=== PATIENT | female | born 1990 | race Asian ===

== ENCOUNTER → 2016-06-10 | Outpatient (CLI) | payer BC ==
[~2016-06-10] VITALS: Ht 160 cm; Wt 65.0 kg
[~2016-06-10] MED LIST: NO DAILY MEDS; ONDANSETRON 4mg/2ml INJECTION IV PRN
[2016-06-10] MEDS: DimenhyDRINATE 50 MG in LR 1,000 ML IV SCH (14:36)
[2016-06-10 14:38] VITALS: BP 100/66; PULSE 71; RESP 16; TEMP 97.5; O2SAT 100
[2016-06-10 14:39] VITALS: Ht 160 cm; Wt 65.0 kg
[2016-06-10] MEDS: D5LR 1,000 ML IV SCH (15:45)
== END ==
LOC: INF.THER 13:55
PROVIDERS: ATTEND Obstetrics & Gynecology
DX: O21.1 Hyperemesis gravidarum with metabolic disturbance (principal)
CPT/HCPCS: 96361; 96365; J1240; J7120; J7121

== ENCOUNTER 2016-11-21 11:11 | Inpatient (IN) ==
--- OUTSIDE RECORDS SUMMARY | 2016-11-21 11:19 | External Medical Summary | Continuity of Care Document ---
:1990 Author Organization [facility] Address [address] [place], [place] [address] Phone Support Name Relationship Address Phone Catarino Craven spouse [address] [facility] [facility] [address] [phone] [place] [address] Allergies, Adverse Reactions, Alerts Substance Reaction Severity Status No Known Drug Allergies Unknown Active Medications Medication Instructions Dosage Effective Dates Status Comments (start - stop) Prena1 Chew 1.4 mg chew 1 tablet by Not Available - Active chew oral route every tablet,immediate - day delayed release Problems Condition Effective Dates (start - stop) Clinical Status Matern care for oth or susp poor fetl - gr, third tri, unsp Encntr for suprvsn of normal first - preg, third trimester 30 weeks gestation of - Encntr for suprvsn of normal first - preg, second trimester 24 weeks gestation of - Matern care for oth or susp poor fetl - gr, third tri, unsp Encntr for suprvsn of normal first - preg, third trimester 32 weeks gestation of - Generalized abdominal pain Nausea with vomiting, unspecified Encntr screen for infections w sexl - mode of transmiss Encounter for screening for oth - infec/parastc diseases Encntr for suprvsn of normal first - preg, second trimester Encounter for screening of - mother 15 weeks gestation of - Encntr for suprvsn of normal first - preg, second trimester 19 weeks gestation of - Encntr for suprvsn of normal first - preg, second trimester 27 weeks gestation of - Encntr for suprvsn of normal first - preg, second trimester 19 weeks gestation of - Procedures Procedure Date OB Visit No Charge Immuniz admnin, 1 vac, sngl/combo 19 Yrs + TDAP VACCINE >7 IM Results Test Name Date and Time Measure Units Reference Range Abnormal Flag Comments Unknown Advance Directives Directive Yes / No Effective Date File Name Unknown Encounters Encounter Practice Location Reason(s) Diagnoses Date Provider Care Team Description For Visit Members Elver Guzman Matern care for Oct- Jena Referring In Womens oth or susp poor 4-201 [place]. Provider: Rony SILVER, michaell grth, third 7 700 [place] PO [address] tri, unspEncntr Medical Jena L, 1522, for suprvsn of [address], normal first Clyde Santarcuz preg, third 120, [place] [id number], [email or web address] weeks Guzman, [facility] 120, [place] gestation of Thomas [place], tel:[phone] [place], , [place]. [id number]. tel: tel:[phone] Elver Guzman Matern care for Sep- Jena Referring In Womens oth or susp poor 1-201 [place]. Provider: Rony SILVER fetl grth, third 7 700 [place] PO Box tri, unspEncntr Radha Bella L, 1522, for suprvsn of [address], normal first Clyde Santacruz preg, third 120, [place] [id number], [email or web address] weeks Guzman, Clyde 120, [place] gestation of Thomas [place], tel:[phone] [place], , [place]. [id number]. tel: tel:[phone] Elver Guzman Encntr for Aug- Jena Referring In Womens suprvsn of normal 0-201 [place]. Provider: Rony SILVER, first preg, 7 700 [place] PO Box second Medical Jena L, 1522, [email or web address] weeks Center [address] [place], gestation of Clyde Santacruz, 120, Center [id number], Thomas [place] 120, [place] Thomas [place], tel:[phone] [place], , [place]. [id number]. tel: tel:[phone] Elver Guzman Encntr for Shahram-0 Jena Referring In Womens suprvsn of normal 9-201 [place]. Provider: Health PA, first preg, 7 700 [place] PO Box second Medical Jena L, 1522, [email or web address] weeks Center [address] [place] [address], gestation of Clyde Santacruz, 120, Center [id number], Thomas [facility] 120, [place] Thomas [place], tel:[phone] [place], , [place]. [id number]. tel: tel:[phone] Elver Guzman Encntr for May-0 Jena Referring In Womens suprvsn of normal 8-201 [place]. Provider: Health PA, first preg, 7 700 [place] PO Box second Medical Jena L, 1522, weeks Center [address] [place] [address], gestation of Clyde Santacruz, 120, Center [id number], Thomas [place] 120, [place] Thomas [place], tel:[phone] [place], , [place]. [id number]. tel: tel:[phone] Elver Guzman Encntr for May-0 Jena Referring In Womens Ultrasound suprvsn of normal 8-201 [place]. Provider: Health PA, first preg, 7 700 [place] PO Box second Medical Jena L, 1522, [email or web address] weeks Center [address] [place] [address], gestation of Clyde Santacruz, 120, Center [id number], Thomas [facility] 120, [place] Thomas [place], tel:[phone] [place], , [place]. [id number]. tel: tel:[phone] Elver Guzman Encntr screen for Apr-1 Jena Referring In Womens infections w sexl 0-201 [place]. Provider: Health ADRIANNE, mode of 7 700 [place] PO Box transmissEncounte Radha Bella L, 1522, r for screening Center [address] [place] [address], for oth , [facility] Radha [place], infec/parastc 120, Center [id number], [facility], [place] for suprvsn of Thomas [place], tel:2 normal first [phone] [place], preg, second , [place]. [id number]. trimesterEncounte tel: tel:[phone] r for [phone] screening of [email or web address] weeks gestation of Associates Thomas Miner Apr- Cecille Referring In Womens abdominal 7-201 [place]pa. Provider: Rony SILVER, Colleenusejulio with 7 700 [place] PO Box vomiting, Radha Bella L, 1522, unspecified Center [facility] Ximena, , Clyde Garcia [place], 120, [place] [id number], [place] [address], Thomas [place], tel: [phone] [facility], [place] , [place]. [id number]. tel: tel:[phone] Family History Family Member Diagnosis Age At Onset No family history of Hypertension No family history of Diabetes No family history of Epilepsy Mother Thyroid Disorder No family history of Thyroid Disorder No family history of Ovarian Cancer No family history of Stroke No family history of Osteoporosis No family history of Colon Cancer No family history of Kidney Disease No family history of Breast Cancer No family history of Cardiovascular Disease No family history of Lung Disease Immunizations Vaccine Date Status Comments Tdap completed Source: New Immunization Record Payers Payer name Insurance type Covered libertarian ID Authorization(s) [facility] [id number] [facility] [id number] Social History Type Description Quantity Date Captured Alcohol Use Details No Caffeine Use Details Unknown Tobacco Use Status Unknown Smoking Status Never smoker Vital Signs Date / Height Weight BMI Pulse Blood Temperature Respiratory Body Head BMI Time: Rate Pressure Rate Surface Circumference percentile Area 169.40 33.0 105/65 -2016 lbs 8 mm[Hg] 1:43 kg/m PM eter (2) Chief Complaint And Reason For Visit Unknown Chief Complaint And Reason For Visit Reason For Referral Reason For Referral Unknown Plan Of Care Date Type Action Status Goal Lifestyle education regarding completed diet Appointment Eze Boykin BOOKED Appointment Eze Boykin BOOKED Appointment Eze Boykin BOOKED Appointment Eze Boykin BOOKED Future Order: Lab Order Pap Smear With HPV Reflex If Ordered ASCUS ([id number]) Future Order: Radiology Order Complete OB Ultrasound > 14 Ordered Weeks ([id number]) Date Type Problem Goal Intervention Status Start Date Unknown. History Of Present Illness Encounter Date Complaint History Of Present Illness This patient has no known history of present illness Functional Status Encounter Date Functional Assessment Cognitive Assessment Unknown Medications Administered Medication Instructions Dosage Effective Dates (start - stop) Status Comments Drug Treatment Unknown Instructions Date Instruction Additional Information HIV and other routine tests risk factors identified by history anticipated course of care nutrition and weight gain counseling, special diet toxoplasmosis precautions (cats / raw meat) sexual activity exercise indications for ultrasound influenza vaccine environmental / work hazards travel tobacco (ask, advise, assess, assist and arrange) alcohol illicit / recreational drugs use of any medications (including supplements, vitamins, herbs, OTC drugs) smoking counseling domestic violence seat belt use childbirth classes / hospital facilities hospital registration genetic testing new ob handbook Giving encouragement to exercise Related to Body mass index 27.0-27.9 Lifestyle education regarding diet Related to Body mass index 27.0-27.9
--- OUTSIDE RECORDS SUMMARY | 2016-11-21 11:19 | External Medical Summary | Continuity of Care Document ---
:1990 Author Organization [facility] Address [address] [place], [place] [address] Phone Support Name Relationship Address Phone Catarino Craven spouse [address] [facility] [address] [phone] [place] [address] Allergies, Adverse Reactions, Alerts Substance Reaction Severity Status No Known Drug Allergies Unknown Active Medications Medication Instructions Dosage Effective Dates Status Comments (start - stop) Prena1 Chew 1.4 mg chew 1 tablet by Not Available - Active chew oral route every tablet,immediate - day delayed release Problems Condition Effective Dates (start - stop) Clinical Status Encntr for suprvsn of normal first - preg, third trimester 34 weeks gestation of - Encntr for suprvsn of normal first - preg, second trimester 24 weeks gestation of - Matern care for oth or susp poor fetl - grth, third tri, unsp Encntr for suprvsn of normal first - preg, third trimester 32 weeks gestation of - Matern care for oth or susp poor fetl - grth, third tri, unsp 30 weeks gestation of - Encntr for suprvsn of normal first - preg, third trimester Matern care for oth or susp poor fetl - grth, third tri, unsp 34 weeks gestation of - Generalized abdominal pain Nausea with vomiting, unspecified Encntr for suprvsn of normal first - preg, second trimester Encntr screen for infections w sexl - mode of transmiss Encounter for screening for oth - infec/parastc diseases Encounter for screening of - mother 15 [...] of normal first - preg, third trimester Encounter for screening of - mother 36 weeks gestation of - Procedures Procedure Date OB Visit No Charge Results Test Name Date and Time Measure Units Reference Range Abnormal Flag Comments Unknown Advance Directives Directive Yes / No Effective Date File Name Unknown Encounters Encounter Practice Location Reason(s) Diagnoses Date Provider Care Team Description For Visit Members Elver Guzman Encntr for Lopez Referring In Womens suprvsn of normal 1-201 [place]. 700 Provider: Health ADRIANNE, first preg, third 7 Medical Kerry PO Box trimesterEncounte [facility] L, 1522, r for Clyde Santacruz, screening of 120, Medical [place], weeks [facility] [id number], gestation of [place], [facility] 120, [place] Thomas, tel: , [place]. [place], tel: [phone]. [id number] tel:[phone] Elver Guzman Encntr for Jena Referring In Womens suprvsn of normal 7-201 [place]. Provider: Health ADRIANNE, first preg, third 7 700 [place] PO Box [email or web address] weeks Medical Jena Leal, 1522, gestation of Am[place] Arun Bueno, Clyde Santacruz Medical [place], 120, [place] [id number], [facility] 120, [place] Thomas [place], tel: [phone] [place], , [place]. [id number]. tel: tel: [phone] Elver Guzman Matern care for Aug-1 Jena Referring In Womens Ultrasound oth or susp poor 7-201 Kerry. Provider: Rony SILVER, fetl grth, third 7 700 [place] PO Box tri, [email or web address] weeks Medical Jena L, 1522, gestation of Center [address] [place] [address], Clyde Santacruz, 120, Center [id number], Thomas [facility] 120, [place] Thomas [place], tel:[phone] [place], , [place]. [id number]. tel: tel:[phone] Elver Guzman Matern care for Aug-0 Jena Referring In Womens oth or susp poor 4-201 Kerry. Provider: Rony SILVER, fetl grth, third 7 700 [place] PO Box tri, unspEncntr Medical Jena L, 1522, for suprvsn of [address], normal first Clyde Santacruz, preg, third 120, [place] [id number], [email or web address] [facility], [place] gestation of Thomas [place], tel:+ [phone] [place], , [place]. [id number]. tel: tel:[phone] Elver Guzman Matern care for Chris-2 Jena Referring In Womens oth or susp poor 1-201 Kerry. Provider: Rony SILVER, fetl grth, third 7 700 [place] PO Box tri, [email or web address] weeks Medical Jena L, 1522, gestation of [address], pregnancyEncntr Clyde Santacruz, for suprvsn of 120, [place] [id number], normal first Guzman, [facility] 120, [place] preg, third Thomas GORDON, tel: trimester [phone] [place], , [place]. [id number]. tel: tel:[phone] Elver Guzman Encntr for Shahram-3 Jena Referring In Womens suprvsn of normal 0-201 Kerry. Provider: Rony SILVER, first preg, 7 700 [place] PO Box second Medical Jena L, 1522, [email or web address] weeks [address], gestation of Clyde Santacruz, 120, Center [id number], Thomas, [facility] 120, [place] Thomas [place], tel:[phone] [place], , [place]. [id number]. tel: tel:[phone] Associates [place] Encntr for Shahram-0 Jena Referring In Womens suprvsn of normal 9-201 Kerry. Provider: Rony SILVER, first preg, 7 700 [place] PO Box second Medical Jena L, 1522, [email or web address] weeks Center 700 [place], gestation of Clyde Santacruz, 120, Center [id number], Thomas, [facility] 120, [place] Thomas [place], tel:[phone] [place], , [place]. [id number]. tel: tel:[phone] Associates [place] Encntr for May-0 Jena Referring In Womens suprvsn of normal 8-201 Ekrry. Provider: Rony SILVER, first preg, 7 700 [place] PO Box second Medical Jena L, 1522, [email or web address] weeks Center 700 [place], gestation of Clyde Santacruz, 120, Center [id number], Thomas, [facility] 120, [place] Thomas GORDON, tel:[phone] [place], , [place]. [id number]. tel: tel:[phone] Associates [place] Encntr for May-0 Jena Referring In Womens Ultrasound suprvsn of normal 8-201 [place]. Provider: Rony SILVER, first preg, 7 700 [place] PO Box second Medical Jena L, 1522, [email or web address] weeks Center 700 [place], gestation of Clyde Santacruz, 120, Center [id number], Thomas, [facility] 120, US Thomas GORDON, tel:[phone] [place], , [place]. [id number]. tel: tel:[phone] Associates [place] Encntr for Apr-1 Jena Referring In Womens suprvsn of normal 0-201 [place]. Provider: Rony SILVER, first preg, 7 700 [place] PO Box second Medical Jena L, 1522, trimesterEncntr Center 700 [place], screen for Dr, [facility], infections w sexl 120, Center [id number], mode of [facility] 120, transmissEncounte Thomas GORD[place], tel: r for screening [phone] [place], for oth , [place]. [id number]. infec/parastc tel: tel:+[phone] [facility] [phone] for screening of [id number] weeks gestation of Associates Thomas Miner Cecille Referring In Womens abdominal 7-201 [place]pa. Provider: Val Oseguera with 7 700 [place] PO Box vomiting, Radha Bella L, 1522, unspecified Center 700 [place], , [facility], 120, Center [id number], [place] [address], Thomas [place]ORD[place], tel:[phone] [facility] , [place]. [id number]. tel: tel: [phone] Family History Family Member Diagnosis Age At [...] Record Payers Payer name Insurance type Covered constitution party ID Authorization(s) [facility] [id number] [facility] [id number] Social History Type Description Quantity Date Captured Alcohol Use Details No Caffeine Use Details Unknown Tobacco Use Status Unknown Smoking Status Never smoker Vital Signs Date / Height Weight BMI Pulse Blood Temperature Respiratory Body Head BMI Time: Rate Pressure Rate Surface Circumference percentile Area 176.30 34.4 lbs 3 mm[Hg] 3:48 kg/m PM eter (2) Chief Complaint And Reason For Visit Unknown Chief Complaint And Reason For Visit Reason For Referral Reason For Referral Unknown Plan Of Care Date Type Action Status Goal Lifestyle education regarding completed diet Appointment Lucretia Davinbrenda BOOKED Future Order: Radiology Order Ultrasound OB Follow-up ([id number]) Ordered Future Order: Lab Order Pap Smear With HPV Reflex If Ordered ASCUS ([id number]) Future Order: Radiology Order Complete OB Ultrasound > 14 Ordered Weeks ([id number]) Date Type Problem Goal Intervention Status Start [...]
--- OUTSIDE RECORDS SUMMARY | 2016-11-21 11:20 | External Medical Summary | Continuity of Care Document ---
:1990 Author Organization [facility] Address [address] [place], [place] [address] Phone Support Name Relationship Address Phone Catarino Craven spouse [address] [phone] [place] [address] Allergies, Adverse Reactions, Alerts Substance Reaction Severity [...] third trimester 32 weeks gestation of - Encntr for suprvsn of normal first - preg, second trimester 24 weeks gestation of - Matern care for oth or susp poor fetl - gr, third tri, unsp Encntr for suprvsn of normal first - preg, third trimester 30 weeks gestation of - Matern care for oth or susp poor fetl - gr, third tri, unsp 34 weeks gestation of [...] third trimester 34 weeks gestation of - Procedures Procedure Date OB Visit No Charge Results Test Name Date and Time Measure Units Reference Range Abnormal Flag Comments Unknown Advance Directives Directive Yes / No Effective Date File Name Unknown Encounters Encounter Practice Location Reason(s) Diagnoses Date Provider Care Team Description For Visit Members [facility] [place] Encntr for Jena Referring In Womens suprvsn of normal 7-201 [place]. Provider: Rony SILVER, first preg, third 7 700 [place] PO Box [email or web address] weeks Medical Jena L, 1522, gestation of Center [address] [place] [address], Dr [facility], 120, [place] [id number], [facility], [place] Thomas [place]ORDON, tel:[phone] [place], [address] , [place]. [id number]. tel: [phone] Elver Guzman Matern care for Jena Referring In Womens Ultrasound oth or susp poor 7-201 [place]. Provider: anjum Oseguera grranda, third 7 700 [place] PO Box tri, [email or web address] weeks Medical Jena L, 1522, gestation of Center [address] [place] [address], Dr [facility], 120, [place] [id number], [facility] 120, [place] Thomas GORD[place], tel:[phone] [facility]ount [facility]90 , [place]. [id number]. tel: tel:[phone] Elver Guzman Matern care for Oct- Jena Referring In Womens oth or susp poor 4-201 Kerry. Provider: Rony SILVER fetl grth, third 7 700 [place] PO Box tri, unspEncntr Medical Jena L, 1522, for suprvsn of [address], normal first Clyde Santacruz, preg, third 120, Center , [email or web address] weeks [facility] 120, [place] gestation of Thomas GORDON, tel:+ [phone] [place], , [place]. [id number]. tel: tel:[phone] Elver Guzman Matern care for Chris-2 Jena Referring In Womens oth or susp poor 1-201 [place]. Provider: Rony SILVER, fetl grth, third 7 700 [place] PO Box tri, unspEncntr Medical Jena L, 1522, for suprvsn of Center [address] [place] [address], normal first Clyde Santacruz, preg, third 120, Center [id number], [email or web address] weeks [facility] 120, [place] gestation of Thomas [place], tel:+ [phone] [place], , [place]. [id number]. tel: tel:[phone] Elver Guzman Encntr for Shahram-3 Jena Referring In Womens suprvsn of normal 0-201 [place]. Provider: Rony SILVER, first preg, 7 700 [place] PO Box second Medical Jena L, 1522, [email or web address] weeks [place] [address] [place], gestation of Clyde Santacruz, 120, [place] [id number], [facility] 120, [place] Thomas GORDON, tel:[phone] [place], , [place]. [id number]. tel: tel:[phone] Elver Guzman Encntr for Shahram-0 Jena Referring In Womens suprvsn of normal 9-201 [place]. Provider: Rony SILVER, first preg, 7 700 [place] PO Box second Medical Jena L, 1522, [email or web address], gestation of Clyde Santacruz, 120, Center [id number], [facility] 120, [place] Thomas GORD[place], tel:[phone] [place], , [place]. [id number]. tel: tel:[phone] Elver Guzman Encntr for May-0 Jena Referring In Womens suprvsn of normal 8-201 [place]. Provider: Rony SILVER, first preg, 7 700 [place] PO Box second Medical Jena L, 1522, [email or web address] weeks Center [address] [place] [address], gestation of Clyde Santacruz [place], 120, Center , Thomas [facility] 120, [place] Thomas GORDON, tel:[phone] [place], , [place]. [id number]. tel: tel:[phone] Associates [place] Encntr for May-0 Jena Referring In Womens Ultrasound suprvsn of normal 8-201 [place]. Provider: Rony SILVER, first preg, 7 700 [place] PO Box second Medical Jena L, 1522, weeks Center [address] [place] [address], gestation of Clyde Santacruz [place], 120, [place] [id number], Thomas [facility] 120, [place] Thomas GORDON, tel:[phone] [place], , [place]. [id number]. tel: tel:+[phone] Associates [place] Encluker screen for Apr-1 Jena Referring In Womens infections w sexl 0-201 [place]. Provider: Rony SILVER, mode of 7 700 [place] PO Box transmissEncounte Medical Jena L, 1522, r for screening [address], for oth Dr [facility] Radha GORD[place], infec/parastc 120, [place] [id number], diseasesEncntr [facility] 120, [place] for suprvsn of Thomas GORDON, tel:+[phone] normal first [id number] [place], preg, second , [place]. [id number]. trimesterEncounte tel: tel:+[phone] r for [phone] screening of [email or web address] weeks gestation of Associates Thomas Generalized Apr-0 Oden Referring In Womens abdominal 7-201 [place]. Provider: Val Oseguera with 7 700 [place] PO Box frank, Medical Jena L, 1522, unspecified Center [address] [place], [place] [address]Dr, [facility] [id number], [place] [address], Thomas GORDON, tel:[phone] [place], [address] , . [id number]. tel: tel: [phone] Family History Family Member Diagnosis Age At [...] Record Payers Payer name Insurance type Covered republican ID Authorization(s) [facility] [id number] [facility] [id number] Social History Type Description Quantity Date Captured Alcohol Use Details No Caffeine Use Details Unknown Tobacco Use Status Unknown Smoking Status Never smoker Vital Signs Date / Height Weight BMI Pulse Blood Temperature Respiratory Body Head BMI Time: Rate Pressure Rate Surface Circumference percentile Area 0 8 1:36 kg/m PM eter (2) 172.00 33.5 105/66 lbs 9 mm[Hg] 1:38 kg/m PM eter (2) Chief Complaint And Reason For Visit Unknown Chief Complaint And Reason For Visit Reason For Referral Reason For Referral Unknown Plan Of Care Date Type Action Status Goal Lifestyle education regarding completed diet Appointment Eze Boykin BOOKED Future Order: Radiology Order Ultrasound OB Follow-up ([id number]) Ordered Future Order: Lab Order Pap Smear With HPV Reflex If Ordered ASCUS ([id number]) Future Order: Radiology Order Complete OB Ultrasound > 14 Ordered Weeks ([id number]) Date Type Problem Goal Intervention Status Start [...]
--- OUTSIDE RECORDS SUMMARY | 2016-11-21 11:20 | External Medical Summary | Continuity of Care Document ---
:1990 Author Organization [facility] Address [address] [place], [place] [id number] Phone Support Name Relationship Address Phone Catarino Craven spouse [address] [phone] [place] [address] Allergies, Adverse Reactions, Alerts Substance Reaction Severity [...] second trimester 27 weeks gestation of - 24 weeks gestation of - Encntr for suprvsn of normal first - preg, second trimester Generalized abdominal pain Nausea with vomiting, unspecified Encntr screen for infections w sexl - mode of transmiss Encounter for screening for oth - infec/parastc diseases Encntr for suprvsn of normal first - preg, second trimester Encounter for screening of - mother 15 weeks gestation of - Encntr for suprvsn of normal first - preg, second trimester 19 weeks gestation of - 19 weeks gestation of - Encntr for suprvsn of normal first - preg, second trimester Procedures Procedure Date OB Visit No Charge Hemoglobin count, colorimetric Hematocrit blood count Glucose test Venpnctr fngr/heel/ear stick routne Results Test Name Date and Time Measure Units Reference Range Abnormal Flag Comments Panel Description: Glucose [Mass/volume] in Serum or Plasma --1 hour post 50 g glucose PO GLUCOSE, GESTATIONAL 79 mg/dL <140 N Test performed at [facility] SCREEN (50G)-140 14:18:00 DIAGNOSTICS [id number] [place] [address]Yypbawud: MATT EUBANKS DO,MPH Panel Description: HEMOGLOBIN + HEMATOCRIT HEMOGLOBIN 14:18:00 11.3 g/dL 11.7-15.5 L HEMATOCRIT 14:18:00 33.6 % 35.0-45.0 L REPORT COMMENT:FASTING :NOTest performed at [facility] [id number] [place] [address]Gddqjrkj: MATT EUBANKS DO,MPH Advance Directives Directive Yes / No Effective Date File Name Unknown Encounters Encounter Practice Location Reason(s) Diagnoses Date Provider Care Team Description For Visit Members Elvre Guzman Encaliyah for Jena Referring In Womens suprvsn of normal 0-201 [place]. Provider: Health ADRIANNE, first preg, 7 700 [place] PO Box second Medical Jena L, 1522, [id number] weeks Center [address] [place], gestation of Clyde Santacruz, 120, Center [id number], [facility], Thomas [place], tel:[phone] [facility] [id number] , . [id number]. tel: tel:[phone] Elver Guzman 24 weeks Aug-0 Jena Referring In Womens gestation of 9-201 [place]. Provider: Health ADRIANNE, pregnancyEncntr 7 700 [place] PO Box for suprvsn of Medical Jena L, 1522, normal first Center [address] [place], preg, second Clyde Santacruz, trimester 120, Center [id number], [facility] 120, Thomas [place], tel:[phone] [facility] , . [id number]. tel: tel:[phone] Elver Guzman 19 weeks May-0 Jena Referring In Womens gestation of 8-201 [place]. Provider: Health ADRIANNE, pregnancyEncntr 7 700 [place] PO Box for suprvsn of Medical Jena L, 1522, normal first Center [address] [place], preg, second Clyde Santacruz, trimester 120, Center [id number], Thomas [facility] 120, [place] Thomas [place], tel:[phone] [place], , [place]. [id number]. tel: tel:[phone] Elver Valdovinosntr for May-0 Jena Referring In Womens Ultrasound suprvsn of normal 8-201 [place]. Provider: Rony SILVER, first preg, 7 700 [place] PO Box second Medical Jena L, 1522, [id number] weeks Center [address] [place] [address], gestation of , Clyde [place], 120, Center [id number], Thomas [facility] 120, [place] Thomas [place], tel:[phone] [place], , [place]. [id number]. tel: tel:[phone] [facility] screen for Apr-1 Jena Referring In Womens infections w sexl 0-201 [place]. Provider: Rony SILVER, mode of 7 700 [place] PO Box transmissEncounte Medical Jena L, 1522, r for screening Center [address] [place] [address], for oth [facility] Radha [place], infec/parastc 120, Center [id number], diseasesEncntr [facility] 120, [place] for suprvsn of [place], tel:[phone] normal first [id number] [place], preg, second , [place]. [id number]. trimesterEncounte tel: tel:[phone] r for [phone] screening of [id number] weeks gestation of Associates Thomas Generalized Apr-0 Oden Referring In Womens abdominal 7-201 [place]. Provider: Rony SILVER painJazmyn with 7 700 [place] PO Box vomiting, Medical Jena L, 1522, unspecified Center [facility] [place], Dr [facility], 120, Center [id number], Thomas [place] [address], Thomas [place], tel:[phone] Dee [place]90 , [place]. [id number]. tel: tel:[phone] Family History Family Member Diagnosis Age At [...] Lung Disease Immunizations Vaccine Date Status Comments Unknown Payers Payer name Insurance type Covered green party ID Authorization(s) [facility] [id number] Social History Type Description Quantity Date Captured Alcohol Use Details No Caffeine Use Details Unknown Tobacco Use Status Unknown Smoking Status Never smoker Vital Signs Date / Height Weight BMI Pulse Blood Temperature Respiratory Body Head BMI Time: Rate Pressure Rate Surface Circumference percentile Area 163.40 31.9 103/68 lbs 1 mm[Hg] 1:25 kg/m PM eter (2) 163.40 31.9 lbs 1 1:24 kg/m PM eter (2) Chief Complaint And [...] Complete OB Ultrasound > 14 Ordered Weeks (78633) Date Type Problem Goal Intervention Status Start [...]
--- OUTSIDE RECORDS SUMMARY | 2016-11-21 11:20 | External Medical Summary | Continuity of Care Document ---
:1990 Author Organization [facility] Address [address] [place], [place] [id number] Phone Support Name Relationship Address Phone Catarino Craven spouse [address] [phone] [place] [address] Allergies, Adverse Reactions, Alerts Substance Reaction Severity [...] tri, unsp 34 weeks gestation of - Encntr for [...] of normal first - preg, third trimester Generalized abdominal pain Nausea with vomiting, [...] weeks gestation of - Procedures Procedure Date Ultrasnd preg uterus, flwup/repeat Results Test Name Date and Time Measure Units Reference Range Abnormal Flag Comments Unknown Advance Directives Directive Yes / No Effective Date File Name Unknown Encounters Encounter Practice Location Reason(s) Diagnoses Date Provider Care Team Description For Visit Members Elver Guzman Encntr for Lopze Referring In Womens suprvsn of normal 1-201 [place]. 700 Provider: Rony SILVER, first preg, third 7 Medical [place] PO Box trimesterEncounte [place] Jena Leal, 1522, r for Dr [address], screening of 120, Medical [place], weeks [facility] [id number], gestation of [facility] 120, [id number] Thomas, tel: , [place]. [place], tel: [phone]. [id number] tel:[phone] Elver Guzman Encntr for Jena Referring In Womens suprvsn of normal 7-201 [place]. Provider: Rony SILVER, first preg, third 7 700 [place] PO Box weeks Medical Jena Leal, 1522, gestation of [place] [address] [place], [address] [facility], 120[facility] [id number], [facility] 120, [place] Thomas [place], tel: [phone] [place], , . [id number]. tel: tel: [phone] Elver Guzman Matern care for Aug-1 Jena Referring In Womens Ultrasound oth or susp poor 7-201 [place]. Provider: Rony SILVER, fetl grth, third 7 700 [place] PO Box tri, [id number] weeks Medical Jena L, 1522, gestation of [address], Clyde Santacruz, 120, Center [id number], Thomas [facility] 120, [place] Thomas [place], tel:[phone] [place], , [place]. [id number]. tel: tel:[phone] Elver Guzman Matern care for Aug-0 Jena Referring In Womens oth or susp poor 4-201 [place]. Provider: Rony SILVER, fetl grth, third 7 700 [place] PO Box tri, unspEncntr Medical Jena L, 1522, for suprvsn of [address], normal first Clyde Santacruz, preg, third 120, [place] [id number], [email or web address] weeks Thomas [facility] 120, [place] gestation of Thomas [place], tel:+ [phone] [place], , [place]. [id number]. tel: tel:[phone] Elver Guzman Matern care for Chris-2 Jena Referring In Womens oth or susp poor 1-201 [place]. Provider: Rony SILVER, fetl grth, third 7 700 [place] PO Box tri, [email or web address] weeks Medical Jena L, 1522, gestation of [address], pregnancyEncntr Clyde Santacruz, for suprvsn of 120, [place] [id number], normal first Thomas Clyde 120, [place] preg, third Thomas [place], tel: trimester [phone] [place], , [place]. [id number]. tel: tel:[phone] Elver Guzman Encntr for Shahram-3 Jena Referring In Womens suprvsn of normal 0-201 [place]. Provider: Rony SILVER, first preg, 7 700 [place] PO Box second Medical Jena L, 1522, [id number], gestation of Clyde Santacruz, 120, Center [id number], Thomas, [facility] 120, [place] Thomas [place], tel:[phone] [place], , [place]. [id number]. tel: tel:[phone] Associates Thomas Encntr for Shahram-0 Jena Referring In Womens suprvsn of normal 9-201 [place]. Provider: Rony SILVER, first preg, 7 700 [place] PO Box second Medical Jena L, 1522, [email or web address] weeks Center [address] [place] [address], gestation of Clyde Santacruz, 120, Center [id number], Thomas, [facility] 120, [place] Thomas [place], tel:[phone] [place], , [place]. [id number]. tel: tel:[phone] Elver Guzman Encntr for May-0 Jena Referring In Womens suprvsn of normal 8-201 [place]. Provider: Rony SILVER, first preg, 7 700 [place] PO Box second Medical Jena L, 1522, weeks Center [address] [place] [address], gestation of Clyde Santacruz, 120, Center [id number], Thomas [facility] 120, [place] Thomas [place], tel:[phone] [place], , [place]. [id number]. tel: tel:[phone] Elver Guzman Encntr for May-0 Jena Referring In Womens Ultrasound suprvsn of normal 8-201 [place]. Provider: Rony SILVER, first preg, 7 700 [place] PO Box second Medical Jena L, 1522, [email or web address] weeks Center [address] [place] [address], gestation of Clyde Santacruz, 120, Center [id number], Thomas, [facility] 120, [place] Thomas [place], tel:[phone] [place], , [place]. [id number]. tel: tel:[phone] Elver Guzman Encntr for Apr-1 Jena Referring In Womens suprvsn of normal 0-201 [place]. Provider: Rony SILVER, first preg, 7 700 [place] PO Box second Medical Jena L, 1522, trimesterEncntr Center [address] [place] [address], screen for Dr, [facility], infections w sexl 120, Center [id number], mode of Guzman, [facility] 120, [place] transmissEncounte Tohmas [place], tel: r for screening [phone] [place], for oth , [place]. [id number]. infec/parastc tel: tel:+[phone] diseasesEncva [facility] [phone] for screening of lotfrj68 weeks gestation of Associates Thomas Miner Cecille Referring In Womens abdominal 7-201 [place]. Provider: Val Oseguera with 7 700 [place] PO Box vomiting, Radha Bella L, 1522, unspecified Center 700 [place], , [facility] Radha [place], 120, Center [id number], [facility] 120, Thomas [place], tel:[phone] [place], , [place]. [id number]. tel: tel: [phone] Family History Family Member Diagnosis Age At [...] name Insurance type Covered libertarian ID Authorization(s) [facility] [id number] [facility] [id number] Social History Type Description Quantity Date Captured Unknown Vital Signs Date / Height Weight BMI Pulse Blood Temperature Respiratory Body Head BMI Time: Rate Pressure Rate Surface Circumference percentile Area Unknown Chief Complaint And Reason For Visit Unknown Chief Complaint And Reason For Visit Reason For Referral Reason For Referral Unknown Plan Of Care Date Type Action Status Goal Lifestyle education regarding completed diet Appointment Eze Boykin BOOKED Future Order: Radiology Order Ultrasound OB Follow-up ([id number]) Ordered Future Order: Lab Order Pap Smear With HPV Reflex If Ordered ASCUS ([id number]) Future Order: Radiology Order Complete OB Ultrasound > 14 Ordered Weeks ([id number]) Date Type Problem Goal Intervention Status Start [...]
--- OUTSIDE RECORDS SUMMARY | 2016-11-21 11:20 | External Medical Summary | Continuity of Care Document ---
:1990 Author Organization [facility] Address [address] [place], [place] [address] Phone Support Name Relationship Address Phone Catarino Craven spouse [address] [phone] [place] [address] Allergies, Adverse Reactions, Alerts Substance Reaction Severity Status No Known Drug Allergies Unknown Active Medications Medication Instructions Dosage Effective Dates Status Comments (start - stop) Prena1 Chew 1.4 mg chew 1 tablet by Not Available - Active chew oral route every tablet,immediate - day delayed release Problems Condition Effective Dates (start - stop) Clinical Status Encntr screen for infections w sexl - [...] Procedures Procedure Date OB Visit No Charge - [employer]CHNICIAN Urine Culture OB Panel With An HIV Neisseria Gonorrhoeae, Amplification Infct antign, chlamydia trac, ampl Venpnctr fngr/heel/ear stick routne Cult, bactr, ident isolate, urine Results Test Name Date and Time Measure Units Reference Range Abnormal Flag Comments Panel Description: OBSTETRIC PANEL WHITE BLOOD CELL 7.7 Thousand/uL 3.8-10.8 N COUNT 16:21:00 RED BLOOD CELL 4.09 Million/uL 3.80-5.10 N COUNT 16:21:00 HEMOGLOBIN 12.1 g/dL 11.7-15.5 N 16:21:00 HEMATOCRIT 36.0 % 35.0-45.0 N 16:21:00 MCV 88.2 fL 80.0-100.0 N 16:21:00 MCH 29.5 pg 27.0-33.0 N 16:21:00 MCHC 33.5 g/dL 32.0-36.0 N 16:21:00 RDW 13.2 % 11.0-15.0 N 16:21:00 PLATELET COUNT 305 Thousand/uL 140-400 N 16:21:00 MPV 8.4 fL 7.5-12.5 N 16:21:00 ABSOLUTE 4967 cells/uL 0127-4874 N NEUTROPHILS 16:21:00 ABSOLUTE 2148 cells/uL 850-3900 N LYMPHOCYTES 16:21:00 ABSOLUTE 424 cells/uL 200-950 N MONOCYTES 16:21:00 ABSOLUTE 131 cells/uL 15-500 N EOSINOPHILS 16:21:00 ABSOLUTE 31 cells/uL 0-200 N BASOPHILS 16:21:00 NEUTROPHILS 64.5 % N 16:21:00 LYMPHOCYTES 27.9 % N 16:21:00 MONOCYTES 5.5 % N 16:21:00 EOSINOPHILS 1.7 % N 16:21:00 BASOPHILS 0.4 % N 16:21:00 ANTIBODY SCREEN, NO ANTIBODIES N RBC W/REFL ID, 16:21:00 DETECTED Reference range TITER AND AG No antibodies detected This assay is a screening test for the detection of red blood cell antibodies. The test is not to be used for pretransfusion screening or for the medical management of an alloimmunized . ABO GROUP A 16:21:00 RH TYPE RH(D) 16:21:00 POSITIVE RPR (DX) W/REFL NON-REACTIVE NON-REACTIV N TITER AND 16:21:00 E CONFIRMATORY TESTING HEPATITIS B NON-REACTIVE NON-REACTIV N SURFACE ANTIGEN 16:21:00 E RUBELLA ANTIBODY 2.53 index N Index (IGG) 16:21:00 Interpretation ----- <0.90 Not consistent with Immunity 0.90-0.99 Equivocal > or=1.00 Consistent with Immunity The presence of rubella IgG antibody suggests immunization or past or current infection withrubella virus.Test performed at [facility] [id number] [place] [address]Gnizwsz r: MATT EUBANKS DO,MPH Panel Description: HIV 1/2 ANTIGEN/ANTIBODY,FOURTH GENERATION W/RFL HIV NON-REACTIVE NON-REACTIVE N HIV-1 antigen and HIV-1/HIV- 2 antibodies were AG/AB, 16:21:00 notdetected. There is no laboratory evidence of 4TH GEN HIVinfection. PLEASE NOTE: This information has been disclosed toyou from records whose confidentiality may beprotected by state law. If your state requires suchprotection, then the state law prohibits you frommaking any further disclosure of the informationwithout the specific written consent of the personto whom it pertains, or as otherwise permitted by law.A general authorization for the release of medical orother information is NOT sufficient for this purpose. For additional information please refer tohttp://education.TrademarkNow/faq/SMF541(This link is being provided for informational/educational purposes only.) The performance of this assay has not been clinicallyvalidated in patients less than 2 years old. REPORT COMMENT:FASTING:NOAN UPDATE OR CORRECTION HAS BEEN MADE TO DOBTest performed at [facility] [id number] [place] [id number]: MATT EUBANKS DO,MPH Panel Description: Bacteria identified in Urine by Culture CULTURE, URINE, SEE NOTE CULTURE, URINE, ROUTINE MICRO ROUTINE 16:48:00 NUMBER: [id number] TEST STATUS: FINAL SPECIMEN SOURCE: URINE SPECIMEN QUALITY: ADEQUATE RESULT: Multiple organisms present, each less than 10,000 CFU/mL. These organisms, commonly found on external and internal genitalia, are considered to be colonizers. No further testing performed.REPORT COMMENT:RFASTING:UNKNOWNTest performed at [facility] [id number] [place] [address]Wwnehdnr: MATT EUBANKS DO,MPH Panel Description: CHLAMYDIA/N. GONORRHOEAE RNA, TMA CHLAMYDIA NOT DETECTED NOT DETECTED N TRACHOMATIS RNA, 16:45:00 TMA NEISSERIA NOT DETECTED NOT DETECTED N GONORRHOEAE RNA, 16:45:00 TMA [id number] SEE NOTE This test was 16:45:00 performed using the APTIMA COMBO2 Assay([employer] The analytical performance characteristics of this assay, when used to test SurePath specimens havebeen determined by efw-suhl. REPORT COMMENT:FASTING:UNKNO WNAN UPDATE OR CORRECTION HAS BEEN MADE TO DOBTest performed at [facility] [id number] [place] [address]Uvwcrtur: MATT EUBANKS DO,MPH Advance Directives Directive Yes / No Effective Date File Name Unknown Encounters Encounter Practice Location Reason(s) Diagnoses Date Provider Care Team Description For Visit Members Elver Guzman Encntr for Oct-1 Jena Referring In Womens suprvsn of normal 7-201 [place]. Provider: Rony SILVER, first preg, third 7 700 [place] PO Box [id number] weeks Medical Jena L, 1522, gestation of Center [address] [place] [address], , [facility] [place], 120, [place] [id number], Thomas, [facility] 120, [place] Thomas [place], tel:[phone] [place], , [place]. [id number]. tel: tel:[phone] Elver Guzman Matern care for Oct-1 Jena Referring In Womens Ultrasound oth or susp poor 7-201 [place]. Provider: anjum Oseguera, third 7 700 [place] PO Box tri, [id number] weeks Medical Jena L, 1522, gestation of Center [address] [place] [address], , [facility] [place], 120, [place] [id number], Thomas, [facility] 120, [place] Thomas [place], tel:[phone] [place], , [place]. [id number]. tel: tel:[phone] Elver Guzman Matern care for Aug-0 Jena Referring In Womens oth or susp poor 4-201 [place]. Provider: anjum Oseguera, third 7 700 [place] PO Box tri, unspEncntr Medical Jena L, 1522, for suprvsn of [address], normal first Clyde Santacruz, preg, third 120, [place] [id number], [id number] weeks Guzman, [facility] 120, [place] gestation of Thomas [place], tel:+ [phone] [place], , [place]. [id number]. tel: tel:[phone] Elver Guzman Matern care for Sep- Jena Referring In Womens oth or susp poor 1-201 [place]. Provider: Health PA, fetl grth, third 7 700 [place] PO Box tri, unspEncntr Medical Jena L, 1522, for suprvsn of Center [address] [place] [address], normal first Clyde Santacruz, preg, third 120, Center , [id number] weeks [facility] 120, [place] gestation of Thomas [place], tel:[phone] [place], , [place]. [id number]. tel: tel:[phone] Elver Guzman Encntr for Shahram-3 Jena Referring In Womens suprvsn of normal 0-201 [place]. Provider: Health PA, first preg, 7 700 [place] PO Box second Medical Jena L, 1522, [id number] weeks [facility] gestation of Clyde Santacruz, 120, Center [id number], [facility], [place] Thomas [place], tel:[phone] [facility] , [place]. [id number]. tel: tel:[phone] Elver Guzman Encntr for Shahram-0 Jena Referring In Womens suprvsn of normal 9-201 [place]. Provider: Health PA, first preg, 7 700 [place] PO Box second Medical Jena L, 1522, [id number] weeks Center [address] [place] [address], gestation of Clyde Santacruz, 120, [place] [id number], [facility] 120, [place] Thomas [place], tel:+ [phone] [place], , [place]. [id number]. tel: tel:[phone] Elver Guzman Encntr for May-0 Jena Referring In Womens suprvsn of normal 8-201 [place]. Provider: Health PA, first preg, 7 700 [place] PO Box second Medical Jena L, 1522, [id number] weeks Center [address] [place] [address], gestation of Clyde Santacruz, 120, Center [id number], [facility] 120, Thomas [place], tel:+[phone] [place], , [place]. [id number]. tel: tel:[phone] Elver Guzman Encntr for May-0 Jena Referring In Womens Ultrasound suprvsn of normal 8-201 [place]. Provider: Health ADRIANNE, first preg, 7 700 [place] PO Box second Medical Jena L, 1522, [id number] weeks Center [address] [place] [address], gestation of Dr, [facility] Radha [place], 120, Center [id number], [facility] 120, [place] Thomas [place], tel:[phone] [place], , [place]. [id number]. tel: tel:[phone] Elver Dawson screen for Apr-1 Jena Referring In Womens infections w sexl 0-201 [place]. Provider: Rony SILVER, mode of 7 700 [place] PO Box transmissEncounte Medical Jena L, 1522, r for screening Center [address] [place] [address], for oth , [facility] Radha [place], infec/parastc 120, [place] [id number], diseasesEncntr [place] [address], [place] for suprvsn of Thomas [place], tel:+[phone] normal first [id number] [place], preg, second , [place]. [id number]. trimesterEncounte tel: tel:+[phone] r for [phone] screening of factgr49 weeks gestation of Elver Guzman Generalized Apr-0 Oden Referring In Womens abdominal 7-201 [place]. Provider: Rony SILVER, Colleenusejulio with 7 700 [place] PO Box Radha marie L, 1522, unspecified Center [facility] Dr Ximena [facility] Radha [place], 120, [place] [id number], [facility] 120, [place] Thomas [place], tel:[phone] [place], , [place]. [id number]. tel: tel:[phone] Family History Family Member Diagnosis Age At [...] Record Payers Payer name Insurance type Covered green party ID Authorization(s) [facility] [id number] [facility] [id number] Social History Type Description Quantity Date Captured Alcohol Use Details No Caffeine Use Details Unknown Tobacco Use Status Never smoked tobacco Smoking Status Never smoker Vital Signs Date / Height Weight BMI Pulse Blood Temperature Respiratory Body Head BMI Time: Rate Pressure Rate Surface Circumference percentile Area 145.00 28.3 lbs 2 mm[Hg] 2:44 kg/m PM eter (2) 27 7 2:39 kg/m PM eter (2) Chief Complaint And Reason For Visit Unknown Chief Complaint And Reason For Visit Reason For Referral Reason For Referral Unknown Plan Of Care Date Type Action Status Goal Lifestyle education regarding completed diet Appointment Eze Boykin BOOKED Future Order: Lab Order Pap Smear With HPV Reflex If Ordered ASCUS (WPMPap1) Future Order: Radiology Order Ultrasound OB Follow-up ([id number]) Ordered Future Order: Radiology Order Complete OB Ultrasound > 14 Ordered Weeks ([id number]) Date Type Problem Goal Intervention Status Start [...]
[2016-11-21] MEDS ORDERED: METHYLERGONOVINE 0.2 MG/ML INJECTION IM PRN (11:34)
[2016-11-21] MEDS ORDERED: CARBOPROST 250 MCG/ML INJECTION IM PRN (11:34)
[2016-11-21] MEDS ORDERED: ACETAMINOPHEN 500 MG TABLET PO PRN (11:34)
[2016-11-21] MEDS ORDERED: CALCIUM CARBONATE Chewable 500mg TABLET PO PRN (11:34)
[2016-11-21] MEDS ORDERED: MAG-AL + SIM ORAL LIQUID 30ml PO PRN (11:34)
[2016-11-21] MEDS ORDERED: LIDOCAINE 1% (10mg/ml) 2mL INJ PF SDV ID PRN (11:34)
[2016-11-21] MEDS: LR 1,000 ML IV PRN ×2 (11:52→15:06)
[2016-11-21 12:11] VITALS: BMI 36.9
--- NOTE | 2016-11-21 12:54 | Anesthesia Preoperative Report ---
Anesthesia Epidural/Spinal Rec - Date and Time Date: 11/21/16 Preoperative Diagnosis: Procedure: Labor Epidural Plan: Epidural - Vital Signs Vital Signs: Temperature 98.0 F 11/21/16 12:34 Pulse Rate 75 11/21/16 12:34 Respiratory Rate 16 11/21/16 12:34 Blood Pressure 118/76 11/21/16 12:34 Pulse Oximetry 98 11/21/16 12:34 NPO since: 0800 /Para: P:0 Heart Rate: 140 - Medictaions & Allergies Inpatient Medications: Current Medications Acetaminophen (Tylenol) 500 - 1,000 mg PO Q4H PRN PRN Reason: Pain Al Hydroxide/Mg Hydroxide (Maalox Plus) 30 ml PO Q3H PRN PRN Reason: Indigestion Calcium Carbonate (Tums) 500 - 1,000 mg PO Q2H PRN PRN Reason: Indigestion Carboprost Tromethamine (Hemabate) 250 mcg IM O PRN PRN Reason: .Downtime Lactated Ringer's (Lactated Ringers) 1,000 mls @ 125 mls/hr IV .Q8H PRN Lidocaine HCl (Xylocaine-Mpf 1% Vial) 0.2 mg ID O PRN PRN Reason: IV Start Methylergonovine Maleate (Methergine) 0.2 mg IM O PRN Misoprostol (Cytotec) 800 mcg [place] ONCE PRN Allergies/Adverse Reactions: Allergies Allergy/AdvReac Type Severity Reaction Status Date / Time No Known Allergies Allergy Unverified 04/23/16 12:02 - Home Medications Home Medications: Home Medications Medication Instructions Recorded Confirmed Type Vitamins 11/01/16 History - Surgical History Anesthesia Reactions: None Hx Family Anesthesia Reaction: No History of Motion Sickness: No - Social History Second Hand Exposure: No Substance Use Type: does not use Alcohol Intake Frequency: does not drink Hx Chewing Tobacco Use: No - Pertinent Findings Lab Data: CBC and BMP 11/21/16 11:55 EKG Rhythm: Normal Sinus Rhythm - Physical Exam Respiratory Exam: lungs clear Cardiovascular Exam: regular rate and rhythm - Airway Assessment Mallampati Score: II TMD: 3 Fingerbreadths Neck Extension: good Overall Assessment: may be difficult intubation - ASA ASA Score: 2 - Discussion Discussion: Discussed risks/options/alternatives of anesthesia and questions answered. Patient consents. Nursing pain assessment noted. Anesthesia Discussion: spouse Attestation Statement: Prior to the delivery of any anesthetic medication, I examined the patient, developed the plan, obtained the patient's consent and discussed the risk and benefits of the procedure with the patient/guardian.
[2016-11-21] MEDS ORDERED: OXYTOCIN DRIP 30 UNIT/500 ML ML IV PRN (13:35)
[2016-11-21] MEDS: D5LR 1,000 ML IV PRN ×2 (14:24→23:39)
[2016-11-21] MEDS ORDERED: DiphenhydrAMINE 50 MG/ML INJECTION IVP PRN (15:31)
[2016-11-21] MEDS ORDERED: ONDANSETRON 4 MG/2 ML INJECTION IVP PRN (15:31)
[2016-11-21] MEDS ORDERED: ROPIVACAINE 1% 10MG/ML INJ 200 MG, SUFentanil 50 MCG in NS 100 ML EPI PRN (15:31)
[2016-11-21] MEDS ORDERED: NALOXONE 0.4 MG/ML INJECTION IVP PRN (15:31)
[2016-11-22] MEDS: LR 1,000 ML IV PRN (01:05)
--- NOTE | 2016-11-22 01:32 | OB/GYN Progress Note ---
- Pain Control Pain control: Epidural - Pelvic Exam Dilation (cm): 4 Effacement (%): 90 station: -3 Amniotic membrane status: Ruptured - Contractions Monitor mode: External Contraction pattern: Regular Contraction intensity: Strong/Firm - Status status: Category ll Comments: 155 mod lyssa occasional late decelerations. - Assessment and Plan Assessment: induction ongoing Comments: Pt has started to make change but now has cat 2 strip. Bolous started, Pitocin stopped, IUPC placed, ABX started for prolonged rupture. will give time for FHT cat to improve if it does not improve will need to move to delivery with PLTCS.
[2016-11-22] MEDS ORDERED: AMPICILLIN 2 GM in NS 100 ML IV ONE (01:33)
--- NOTE | 2016-11-22 01:59 | OB/GYN Progress Note ---
- Pain Control Pain control: Epidural - Pelvic Exam Dilation (cm): 4 Effacement (%): 90 station: -3 Amniotic membrane status: Ruptured - Contractions Monitor mode: External Contraction pattern: Regular Contraction intensity: Strong/Firm - Status status: Category ll Comments: Lates with occasional contractions, no accelerations, Decreasing variability. - Assessment and Plan Assessment: induction ongoing Comments: Cat 2 strip not improving with Fluids, turning off Pitocin and positioning. Discussed need to move to delivery with PLTCS. Discussed R/B/A to procedure including infection, Injury to Bowel, Bladder, Baby. Bleeding with need for transfusion and . Questions elicited and answered.
[2016-11-22] MEDS ORDERED: FAMOTIDINE PB 20 MG/50 ML BAG IV ONE (02:00)
[2016-11-22] MEDS ORDERED: CITRIC ACID/SODIUM CITRATE 30ml PO ONE (02:00)
[2016-11-22] MEDS ORDERED: AZITHROMYCIN IV 500 MG in NS 250ml 250 ML IV ONE (02:02)
[2016-11-22] MEDS: CEFAZOLIN PREMIX (MC ONLY) 2 GM/50 ML BAG IV ONE ×2 (02:14→03:41)
[2016-11-22] MEDS ORDERED: LIDOCAINE 2%/EPI 1:200,000 20ml SDV PF ONE (02:21)
[2016-11-22] MEDS ORDERED: FentaNYL 100 MCG/2 ML INJECTION ONE ×3 (02:24→04:31)
[2016-11-22] MEDS ORDERED: MORPHINE SULFATE PF 5mg/10ml INJ (Duramorph) ONE (02:26)
--- NOTE | 2016-11-22 02:29 | Anesthesia Preoperative Report ---
Anesthesia Preoperative Record - Date and Time Date: 11/22/16 Preoperative Diagnosis: decreased variability Proposed Procedure: emergency csection NPO Since Date: 11/21/16 NPO Since Time: 14:00 Allergies/Adverse Reactions: Allergies Allergy/AdvReac Type Severity Reaction Status Date / Time No Known Allergies Allergy Unverified 04/23/16 12:02 - Vital Signs Vital Signs: Temperature 98.0 F 11/21/16 12:34 Pulse Rate 75 11/21/16 12:34 Respiratory Rate 16 11/21/16 12:34 Blood Pressure 118/76 11/21/16 12:34 Pulse Oximetry 98 11/21/16 12:34 Height and Weight: Height 1.52 m Weight 85.729 kg Body Mass Index 36.9 - Medications Inpatient Medications: Current Medications Acetaminophen (Tylenol) 500 - 1,000 mg PO Q4H PRN PRN Reason: Pain Al Hydroxide/Mg Hydroxide (Maalox Plus) 30 ml PO Q3H PRN PRN Reason: Indigestion Calcium Carbonate (Tums) 500 - 1,000 mg PO Q2H PRN PRN Reason: Indigestion Carboprost Tromethamine (Hemabate) 250 mcg IM O PRN PRN Reason: .Downtime Citric Acid/Sodium Citrate (Oracit) 30 ml PO ONCE ONE Stop: 11/22/16 02:01 Last Admin: 11/22/16 02:03 Dose: 30 ml Diphenhydramine HCl (Benadryl) 25 - 50 mg IVP Q3H PRN PRN Reason: Itching Lactated Ringer's (Lactated Ringers) 1,000 mls @ 125 mls/hr IV .Q8H PRN Last Admin: 11/22/16 01:05 Dose: 125 mls/hr Dextrose/Lactated Ringer's (Dextrose 5%-Lactated Ringers) 1,000 mls @ 125 mls/ hr IV .Q8H PRN PRN Reason: Labor Last Admin: 11/21/16 23:39 Dose: 125 mls/hr Oxytocin (Pitocin Drip) 30 unit in 500 mls @ 2 mls/hr IV .Q24H PRN; Protocol PRN Reason: Induction/Augmentation Last Admin: 11/21/16 14:24 Dose: 2 mls/hr Ropivacaine 200 mg/ Sufentanil Citrate 50 mcg/ Sodium Chloride 121 mls @ 8 mls/ hr EPI PRN PRN PRN Reason: Protocol Last Admin: 11/22/16 01:39 Dose: 8 mls/hr Ampicillin Sodium 1 gm/ Sodium (Chloride) 100 mls @ 200 mls/hr IV Q4H LIAM Ampicillin Sodium 2 gm/ Sodium (Chloride) 100 mls @ 200 mls/hr IV O ONE Stop: 11/22/16 02:02 Last Infusion: 11/22/16 02:02 Dose: Infused Cefazolin Sodium/Dextrose (Kefzol Premix (Mc Only)) 2 gm in 50 mls @ 100 mls/ hr IV PREOP ONE Stop: 11/22/16 02:29 Last Infusion: 11/22/16 02:19 Dose: 0 mls/hr Famotidine/Sodium Chloride (Pepcid Premix) 20 mg in 50 mls @ 100 mls/hr IV O ONE Stop: 11/22/16 02:29 Last Admin: 11/22/16 02:03 Dose: 100 mls/hr Azithromycin 500 mg/ Sodium (Chloride) 250 mls @ 250 mls/hr IV O ONE Stop: 11/22/16 03:01 Lidocaine HCl (Xylocaine-Mpf 1% Vial) 0.2 mg ID O PRN PRN Reason: IV Start Methylergonovine Maleate (Methergine) 0.2 mg IM O PRN Misoprostol (Cytotec) 800 mcg [place] ONCE PRN Naloxone HCl (Narcan) 0.1 mg IVP Q2M PRN PRN Reason: Respiratory distress Ondansetron HCl (Zofran) 4 mg IVP Q6H PRN PRN Reason: Nausea &/or vomiting Home Medications: Home Medications Medication Instructions Recorded Confirmed Type Vitamins 11/01/16 History - Social History Hx Chewing Tobacco Use: No Second Hand Exposure: No Substance Use Type: does not use Alcohol Intake Frequency: does not drink - Pertinent Findings Laboratory: CBC and BMP 11/21/16 11:55 - Physical Exam Respiratory Exam: Present: lungs clear Cardiovascular Exam: Present: regular rate and rhythm - Airway Assessment Mallampati Score: II TMD: 3 Fingerbreadths Neck Extension: good Overall Assessment: may be difficult intubation - ASA ASA Score: 2 - Plan Regional/Trunk Block: Epidural (labor converted to surgical ) - Discussion Discussion: Discussed risks/options/alternatives of anesthesia and questions answered. Patient consents. Nursing pain assessment noted. Present for Discussion: spouse Attestation Statement: Prior to the delivery of any anesthetic medication, I examined the patient, developed the plan, obtained the patient's consent and discussed the risk and benefits of the procedure with the patient/guardian.
--- NOTE | 2016-11-22 03:02 | OB/GYN Progress Note ---
- Pain Control Pain control: Epidural - Pelvic Exam Dilation (cm): 4 Effacement (%): 90 station: -3 Amniotic membrane status: Ruptured - Contractions Monitor mode: External Contraction pattern: Regular Contraction intensity: Strong/Firm - Status status: Category l - Assessment and Plan Assessment: induction ongoing (FHT improved will restart pitocin at 10 and go up 2 every 15 )
--- NOTE | 2016-11-22 03:42 | OB/GYN Progress Note ---
- Pain Control Pain control: Epidural - Pelvic Exam Dilation (cm): 4 Effacement (%): 90 station: -3 Amniotic membrane status: Ruptured - Contractions Monitor mode: Internal Contraction pattern: Regular Contraction intensity: Strong/Firm - Status status: Category ll (Late decelerations) - Assessment and Plan Assessment: induction ongoing Plan: (Will proceed with C/S for Intolerance to Labor. )
[2016-11-22] MEDS ORDERED: EPHEDRINE 50mg/ml INJECTION ONE (04:09)
[2016-11-22] MEDS ORDERED: SALINE FLUSH 10ml SYRINGE ONE (04:09)
[2016-11-22] MEDS ORDERED: ONDANSETRON 4 MG/2 ML INJECTION ONE (04:10)
[2016-11-22] MEDS ORDERED: OXYTOCIN BOLUS BAG 30 UNIT/500 ML ML IV SCH (04:15)
[2016-11-22] MEDS ORDERED: NALBUPHINE 10 MG/ML INJECTION IVP PRN (04:50)
[2016-11-22] MEDS ORDERED: NALOXONE 2 MG/2 ML INJECTION PFS IVP PRN (04:50)
[2016-11-22] MEDS ORDERED: ONDANSETRON 4 MG/2 ML INJECTION IVP PRN (04:50)
--- NOTE | 2016-11-22 04:50 | Anesthesia Postoperative Note ---
- Date and Time Date: 11/22/16 Time: 05:20 - Status Patient Participated in Evaluation: Patient Participated in Person Vital Signs: Temperature 98.0 F 11/21/16 12:34 Pulse Rate 75 11/21/16 12:34 Respiratory Rate 16 11/21/16 12:34 Blood Pressure 118/76 11/21/16 12:34 Pulse Oximetry 98 11/21/16 12:34 Respiratory Function: Airway Patent Cardiovascular Function: Regular Pulse Mental Status: Alert and Oriented Hydration: IV Infusing Complications During Recover: None Apparent - Follow-Up Instructions Instructions: Per Surgeon
--- NOTE | 2016-11-22 05:06 | Operative Note ---
Operative Note - Date of Operation Date of Operation: 11/22/16 - General : 1 Para: 1 Expected Date of Delivery: 11/30/16 - Preoperative Diagnosis Nonreassuring FHT, Late decelerations, PROM, Prolonged labor - Postoperative Diagnosis same as preoperative - Procedure Primary, Low-transverse - Surgeon Surgeon: Wilner Ballard DO - Wet Process [place] Kerry Bella MD - Anesthesia Anesthesia Provider: Horacio Chauhan CRNA Anesthesia Type: Combined Spinal/Epidural - Estimated Blood Loss Estimated Blood Loss:: 800 - Findings Findings: viable male - APGARS : 8/9/9 - [place] Weight 2834 kg - Indications Indications: Failed IOL see preoperative diagnosis - Description of Procedure Description of Procedure: See dicatation Report ID [id number] Refrence #[id number]
[2016-11-22] MEDS ORDERED: AMPICILLIN 1 GM in NS 100 ML IV SCH (05:35)
[2016-11-22] MEDS: D5LR 1,000 ML IV SCH ×2 (05:40→21:59)
[2016-11-22] MEDS ORDERED: OXYTOCIN DRIP 30 UNIT/500 ML ML IV SCH (07:13)
[2016-11-22] MEDS ORDERED: ACETAMINOPHEN 500 MG TABLET PO PRN (07:13)
[2016-11-22] MEDS ORDERED: HYDROCODONE/APAP 5mg/325mg TABLET PO PRN (07:13)
[2016-11-22] MEDS ORDERED: SIMETHICONE 80 MG CHEWABLE TABLET PO PRN (07:13)
[2016-11-22] MEDS ORDERED: SALINE FLUSH 10ml SYRINGE IV PRN (07:13)
[2016-11-22] MEDS ORDERED: IBUPROFEN 800 MG TABLET PO SCH (07:13)
[2016-11-22] MEDS ORDERED: CALCIUM CARBONATE Chewable 500mg TABLET PO PRN (07:13)
[2016-11-22] MEDS ORDERED: HYDROCORTISONE 2.5% CREAM 30gm RECTALLY PRN (07:13)
[2016-11-22] MEDS ORDERED: DiphenhydrAMINE 25 MG CAPSULE PO PRN (07:13)
[2016-11-22] MEDS ORDERED: HYDROCODONE/APAP 2.5mg-108mg/5ml ORAL LIQUID PO PRN (08:37)
--- NOTE | 2016-11-22 08:52 | Operative Note ---
DATE OF PROCEDURE 11/22/2016 PREOPERATIVE DIAGNOSES 1. Single live intrauterine . 2. Premature rupture of membranes. 3. Failed induction of labor. 4. Nonreassuring heart tones. 5. Late decelerations. POSTOPERATIVE DIAGNOSES 1. Single live intrauterine , delivered. 2. Premature rupture of membranes. 3. Failed induction of labor. 4. Nonreassuring heart tones. 5. Late decelerations. PROCEDURE Primary low transverse section via Pfannenstiel incision. SURGEON Dr. Wilner Ballard DO TARPER Kerry Bella MD ANESTHESIA PROVIDER Horacio Chauhan CRNA ANESTHESIA TYPE Combined spinal/epidural ESTIMATED BLOOD LOSS 800 mL IV FLUIDS 1100 mL clear fluid. URINE 100 mL clear urine at the end of the procedure. FINDINGS A viable male infant in cephalic presentation with Apgars of 8//9 and a weight of 2,834 grams. COMPLICATIONS None. INDICATIONS FOR PROCEDURE This is a 25-year-old 1 who presented at term with premature rupture of membranes. After a sufficient amount of time it was noted that patient was not in labor and was not going to proceed in labor and Pitocin was started. She was noted to be group B strep negative at the time of admission. Pitocin had reached a max of 30 milliunits and the patient was ciarra regularly. At this time the patient developed late decelerations and decreasing variability from moderate to minimal. Pitocin was turned off. IUPC was placed. The fetus recovered with category 1 heart tones and a second attempt at Pitocin was started. The patient got to a total of 18 milliunits and had return of late decelerations with decreasing variability and decision was made to proceed with section. The patient was dilated to 4 cm at that time. DESCRIPTION OF PROCEDURE The patient was taken to the operating room where combined spinal-epidural was achieved without difficulty. The patient was given cefazolin and azithromycin for preoperative antibiotics along with TXA since she had been prolonged ruptured with prolonged labor and exposure to Pitocin to prevent hemorrhage. She was then placed in the dorsal supine position with a leftward tilt and prepped and draped in the normal sterile fashion. After a time-out was performed with all OR staff, a Pfannenstiel skin incision was made and carried through the underlying layers to the fascia. The fascia was then incised in the midline and the fascial incision was then extended sharply with the Rosales scissors. At this time the superior aspect of the fascial incision was grasped with the Cecilio clamps, elevated and the rectus muscle dissected off sharply. Attention was turned to the lower aspect of the fascial incision which was grasped with a Cecilio clamp, rectus muscle elevated and rectus muscle dissected off sharply with the Rosales scissors. At this time the rectus muscles were sharply in the midline with a scalpel and the peritoneum was entered sharply with the Metzenbaum scissors. This incision was then extended superiorly and inferiorly with good visualization of the bladder. The bladder blade was inserted and the uterine incision was made in a transverse fashion. The uterine incision was then extended bluntly and the infant's head was delivered atraumatically followed by the body. The cord was doubly clamped and cut and the infant was handed to the town administrator who was waiting. At this time the uterus was exteriorized and cleared of all clot and debris. The uterine incision was then repaired with 1-0 Monocryl in a running-locked fashion. Excellent hemostasis was noted. The uterus was returned to the abdomen. At this time the peritoneal incision was repaired with 3-0 Monocryl in a running fashion. The rectus muscles were then reapproximated loosely with 3-0 Monocryl and the fascial incision was repaired with 0 Vicryl in a running fashion. Subcu layer was closed with 2-0 plain gut and the skin was closed with 4-0 Monocryl and Dermabond. The patient tolerated the procedure well. Sponge, lap and needle counts were correct x 2 and the patient was taken to the recovery room in stable condition. SHERITA
[2016-11-22] MEDS ORDERED: CEFAZOLIN 1 G in NS 100 ML IV SCH (09:00)
--- NOTE | 2016-11-22 13:32 | Progress Note ---
OB PP Progress Note Free Text - Date Date: 11/22/16 - Progress Note Progress Note: Pt reports good pain control. Eating lunch. AVSS Stable. Cont current plan.
[2016-11-22] MEDS: SIMETHICONE 80 MG CHEWABLE TABLET PO SCH ×4 (14:04→22:09)
[2016-11-22] MEDS: IBUPROFEN 100 MG/5 ML ORAL LIQUID PO SCH ×2 (14:05→22:09)
[2016-11-22] MEDS: DOCUSATE CALCIUM 240 MG CAPSULE PO SCH (14:15)
[2016-11-23] MEDS: IBUPROFEN 100 MG/5 ML ORAL LIQUID PO SCH ×3 (02:17→19:22)
--- NOTE | 2016-11-23 12:17 | OB/GYN Progress Note ---
OB-PP Progress Note - General PPD1 Maternal Group B Strep: Positive Maternal Rubella Status: Immune - Subjective Date: 11/23/16 Lochia: Minimal Pain: contolled Voiding: voiding Nausea or Vomiting Present: No - Objective Vital Signs: Last Vital Signs Temp 97.7 F 11/23/16 08:00 Pulse 93 11/23/16 08:00 Resp 16 11/23/16 08:00 BP 101/61 11/23/16 08:00 Pulse Ox 100 11/23/16 08:00 Urine Output: good General: alert and oriented Abdomen: fundus firm, non-tender Incision: normal, no erythema Extremities: non-tender Laboratory: Laboratory Results - last 24 hr 11/22/16 12:45 WBC 10.9 RBC 3.55 L Hgb 10.0 L D Hct 31.1 L MCV 87.6 MCH 28.2 MCHC 32.2 RDW Std Deviation 39.6 Plt Count 255 MPV 8.6 L - Assessment Assessment: SP, Repeat C/S - Plan Plan: routine care
[2016-11-23] MEDS: DOCUSATE CALCIUM 240 MG CAPSULE PO SCH ×2 (13:15→19:22)
[2016-11-23] MEDS: SIMETHICONE 80 MG CHEWABLE TABLET PO SCH ×3 (13:15→22:23)
[2016-11-23] MEDS: D5LR 1,000 ML IV SCH (16:53)
[2016-11-23 22:09] VITALS: O2SAT 98
[2016-11-24] MEDS: IBUPROFEN 100 MG/5 ML ORAL LIQUID PO SCH ×2 (08:22→08:49)
[2016-11-24] MEDS ORDERED: DOCUSATE 100mg/10ml ORAL LIQUID PO SCH (09:00)
--- NOTE | 2016-11-24 11:42 | Discharge Instructions ---
Discharge Plan - Med Rec/Dispo Prescriptions: New Ibuprofen 800 mg PO Q8H #1 oral.susp Docusate Oral Liq [Colace Liquid] 100 mg PO DAILY #999 udc Hydrocodone/APAP Oral Liq [Carmel Liquid] 10 - 20 ml PO Q4H PRN #200 udc PRN Reason: Pain No Action Vitamins - Disposition 01 Discharged Home, Self-Care
[2016-11-24 19:09] VITALS: BP 116/69; PULSE 72; RESP 18; TEMP 98.4
== END 2016-11-24 19:30 | disposition home or self-care (01) | DRG 766 ==
LOC: MC 11:11 → OBOBS 11:13 → MC 11:30
PROVIDERS: ADMIT Obstetrics & Gynecology; ATTEND Obstetrics & Gynecology